=== PATIENT | female | born 1965 ===

== ENCOUNTER → 2021-04-01 | Outpatient (REF) ==
--- NOTE | 2021-04-02 05:44 | REP ---
INDICATION: PAIN COMPARISON: None. TECHNIQUE: AP and frog-lateral views of the right hip FINDINGS: Hip prosthesis appears intact and relatively normal in appearance and position. Surrounding osseous structures demonstrate mild age-related degenerative changes. No significant periarticular calcifications or loose bodies are identified. No evidence for acute fracture or dislocation. IMPRESSION: Relatively appropriate examination. <Electronically signed by Chintan Harden > 04/02/21 0540
== END ==
LOC: M PLAIMG 13:23
PROVIDERS: ATTEND Internal Medicine
DX: Z00.00 Encounter for general adult medical examination without abnormal findings (principal)